=== PATIENT | female | born 2000 | race African-American/Black ===

== ENCOUNTER 2022-01-23 04:34 | Day surgery (SDC) | payer OTHER ==
[2022-01-22 13:24] VITALS: BMI 44.0
[2022-01-23 11:59] VITALS: BP 117/66; PULSE 59
[2022-01-23 13:33] VITALS: TEMP 97.4
== END 2022-01-23 11:58 | disposition home or self-care (01) ==
LOC: JASU-ENDO 04:34
PROVIDERS: ATTEND Internal Medicine Gastroenterology
PROC: 0DB68ZX Excision of Stomach, Via Natural or Artificial Opening Endoscopic, Diagnostic (ICD-10-PCS; principal; 2022-01-23 10:45)
DX: Z01.818 Encounter for other preprocedural examination (principal); E66.01 Morbid (severe) obesity due to excess calories; K29.50 Unspecified chronic gastritis without bleeding
CPT/HCPCS: 81025; 88305-TC; 88342-TC

== ENCOUNTER 2023-09-11 04:40 | Day surgery (SDC) | payer OTHER ==
[2023-09-07 12:26] VITALS: BMI 45.1
[2023-09-11] MEDS ORDERED: DEXAMETHASONE SOD PHOSPHATE 10 MG/1 ML VIAL ONE (13:39)
[2023-09-11] MEDS ORDERED: BUPIVACAINE HCL/PF 0.5% (5MG/ML) 10 ML VIAL ONE (13:40)
[2023-09-11] MEDS ORDERED: MIDAZOLAM HCL 2 MG/2 ML SINGLE DOSE VIAL ONE ×2 (13:41→13:56)
[2023-09-11] MEDS ORDERED: PROPOFOL 20 ML ONE (13:56)
[2023-09-11] MEDS ORDERED: ROCURONIUM BROMIDE 50 MG/5 ML SYRINGE ONE ×2 (13:57→14:57)
[2023-09-11] MEDS ORDERED: LIDOCAINE HCL/PF 2% SDV 5ML VIAL ONE (13:58)
[2023-09-11] MEDS ORDERED: ceFAZolin SODIUM 1 GM VIAL ONE (14:14)
[2023-09-11] MEDS: ceFAZolin SODIUM 1 GM VIAL IVPB ONE (14:14)
[2023-09-11] MEDS ORDERED: DEXAMETHASONE SOD PHOSPHATE 4 MG/1 ML VIAL ONE (14:22)
[2023-09-11] MEDS ORDERED: KETOROLAC TROMETHAMINE 30 MG/1 ML VIAL ONE (14:22)
[2023-09-11] MEDS ORDERED: ONDANSETRON 4 MG/2 ML VIAL ONE (14:22)
[2023-09-11] MEDS ORDERED: SUGAMMADEX SODIUM 200 MG/2 ML VIAL ONE (15:22)
[2023-09-11] MEDS ORDERED: ONDANSETRON 4 MG/2 ML VIAL IVPUSH PRN (16:21)
[2023-09-11] MEDS ORDERED: PROMETHAZINE HCL 25 MG/1 ML VIAL IVPB PRN (16:21)
[2023-09-11] MEDS ORDERED: LACTATED RINGERS SOLUTION 1,000 ML IV SCH (16:30)
[2023-09-11] MEDS ORDERED: HYDROmorphone HCl 2 MG/ML VIAL IVPUSH PRN (17:43)
[2023-09-11] MEDS: HYDROmorphone HCl 2 MG/ML VIAL IVPUSH ONE (17:45)
[2023-09-11] MEDS: ACETAMINOPHEN 1000 MG/100 ML BAG IVPB ONE ×2 (17:45→18:18)
[2023-09-11] MEDS ORDERED: oxyCODONE HCL 5 MG TABLET ONE (18:26)
[2023-09-11] MEDS: oxyCODONE HCL 5 MG TABLET PO PRN (18:27)
[2023-09-11] MEDS ORDERED: oxyCODONE HCL 5 MG TABLET PO PRN (18:31)
[2023-09-11 19:00] VITALS: RESP 20; TEMP 97.5
[2023-09-11 19:03] VITALS: BP 120/61; PULSE 75
== END 2023-09-11 19:10 | disposition home or self-care (01) ==
LOC: JASUSAT 04:40
PROVIDERS: ATTEND Obstetrics & Gynecology Gynecologic Oncology
PROC: 0UB14ZZ Excision of Left Ovary, Percutaneous Endoscopic Approach (ICD-10-PCS; principal; 2023-09-11 13:30)
DX: D27.1 Benign neoplasm of left ovary (principal)
CPT/HCPCS: 81025; 86850; 86900; 86901; 88108; 88305-TC; 88307-TC; 94760; J0131; J1100

== ENCOUNTER 2023-12-14 13:15 | Emergency (ER) | payer OTHER ==
[2023-12-14 13:31] VITALS: BP 128/61; PULSE 101; RESP 18; TEMP 98.4; BMI 43.5
[2023-12-14] MEDS ORDERED: KETOROLAC TROMETHAMINE 30 MG/1 ML VIAL ONE (14:58)
[2023-12-14] MEDS ORDERED: DEXAMETHASONE SOD PHOSPHATE 10 MG/1 ML VIAL ONE (14:58)
[2023-12-14] MEDS: KETOROLAC TROMETHAMINE 30 MG/1 ML VIAL IVPUSH ONE (14:59)
[2023-12-14] MEDS: DEXAMETHASONE LIQUID 0.5 MG/5 ML PO ONE (14:59)
[2023-12-14 15:02] LABS: EOS % 1.2 % (0-4.5); HEMATOCRIT 36.4 % (32.4-45.2); HEMOGLOBIN 11.7 GM/dL (10.7-15.3); LYMPH % 19.2 % (8-40); MCHC 32.1 g/dl (32.0-36.0); MEAN CELL VOLUME 77.9 fl (80-96); MEAN PLT VOLUME 7.5 fl (7.5-11.1); MONO % 7.2 % (3.8-10.2); NEUT % 71.4 % (42.8-82.8); PLATELET COUNT 472 10^3/uL (134-434); RBC 4.67 M/mm3 (3.60-5.2); RDW 15.9 % (11.6-15.6); WHITE BLOOD COUNT 11.1 K/mm3 (4.0-10.0)
[2023-12-14 15:19] LABS: POTASSIUM 4.1 mmol/L (3.5-5.1)
[2023-12-14 15:21] LABS: BLOOD UREA NITROGEN 12.9 mg/dL (7-18); CALCIUM 9.2 mg/dL (8.5-10.1)
[2023-12-14 15:25] LABS: CREATININE 0.9 mg/dL (0.55-1.3)
[2023-12-14 15:27] LABS: BILIRUBIN,TOTAL 0.9 mg/dL (0.2-1); TOT PROT 7.8 g/dl (6.4-8.2)
[2023-12-14 15:32] LABS: THROAT:GRP A STREP NOT DETECTED (NOTDETECTED)
[2023-12-14] MEDS ORDERED: AMOXICILLIN 250 MG CAPSULE ONE (16:44)
[2023-12-14] MEDS: AMOXICILLIN 500 MG CAPSULE (FP) PO ONE (16:49)
== END 2023-12-14 16:49 | disposition home or self-care (01) ==
LOC: JERFT 13:15
PROC: 3E0333Z Introduction of Anti-inflammatory into Peripheral Vein, Percutaneous Approach (ICD-10-PCS; principal; 2023-12-14)
DX: J03.90 Acute tonsillitis, unspecified (principal); R05.9 Cough, unspecified; R00.0 Tachycardia, unspecified; Z20.822 Contact with and (suspected) exposure to COVID-19
CPT/HCPCS: 0241U-QW; 36415; 70491-TC; 80053; 84703; 85025; 86308; 87651; 99285-25; Q9967

== ENCOUNTER 2025-02-03 20:25 | Emergency (ER) | payer OTHER ==
[2025-02-03 20:32] VITALS: RESP 18; BMI 45.1
[2025-02-03] MEDS ORDERED: LIDOCAINE 4% PATCH TP ONE (21:22)
[2025-02-03] MEDS ORDERED: ONDANSETRON 4 MG/2 ML VIAL ONE (21:23)
[2025-02-03] MEDS ORDERED: KETOROLAC TROMETHAMINE 15 MG/ML VIAL ONE (21:23)
[2025-02-03] MEDS: SODIUM CHLORIDE 500 ML IV STA (21:34)
[2025-02-03] MEDS: LIDOCAINE 4% PATCH TP ONE (21:34)
[2025-02-03] MEDS: ONDANSETRON 4 MG/2 ML VIAL IVPUSH ONE (21:34)
[2025-02-03] MEDS: KETOROLAC TROMETHAMINE 15 MG/ML VIAL IVPUSH ONE (21:34)
[2025-02-03 22:00] LABS: ABSOLUTE IMMATURE GRANULOCYTES 0.03 x10^3/uL (0.0-0.031); BASOPHILS # 0.09 x10^3/uL (0.01-0.08); EOSINOPHIL % 2.1 % (0.7-5.8); EOSINOPHILS # 0.24 x10^3/uL (0.04-0.36); MCHC 31.1 g/dl (32.2-35.5); MEAN CELL VOLUME 83.7 fl (79.4-94.8); MEAN PLT VOLUME 9.5 fl (9.4-12.3); MONOCYTE # 0.91 x10^3/uL (0.24-0.86); MONOCYTE % 7.9 % (4.7-12.5); RDW 13.5 % (12.1-16.5)
[2025-02-03] MEDS ORDERED: LIDOCAINE PATCH REMOVAL MC SCH (22:00)
[2025-02-03 22:41] LABS: URINE APPEARANCE CLEAR; URINE BILIRUBIN NEGATIVE (NEGATIVE); URINE COLOR YELLOW; URINE GLUCOSE (UA) NEGATIVE (NEGATIVE); URINE KETONE NEGATIVE (NEGATIVE); URINE LEUK ESTERASE NEGATIVE (NEGATIVE); URINE NITRITE NEGATIVE (NEGATIVE); URINE PROTEIN NEGATIVE (NEGATIVE); URINE UROBILINOGEN 1.0 mg/dL (0.2-1.0)
[2025-02-03 23:59] LABS: CO2 26.0 mmol/L (21-32); GLUCOSE,RANDOM 100.0 mg/dL (74-106)
[2025-02-04 00:02] LABS: CREATININE 1.0 mg/dL (0.55-1.3); SGOT/AST 39.0 U/L (15-37); SGPT/ALT 38.0 U/L (13-61)
[2025-02-04 00:04] LABS: TOT PROT 7.4 g/dl (6.4-8.2)
[2025-02-04 00:05] LABS: ALK PHOS 79.0 U/L (45-117)
[2025-02-04 00:29] VITALS: BP 112/54; PULSE 54; TEMP 98.4
[2025-02-04 00:58] LABS: HIV INTERPRETATION NEGATIVE (NEGATIVE)
[2025-02-04 00:59] LABS: HCV DIAGNOSTIC IN-HOUSE W/RFLX NON-REACTIVE (NONREACTIVE)
== END 2025-02-04 00:35 | disposition home or self-care (01) ==
LOC: JER 20:25
PROC: 3E0333Z Introduction of Anti-inflammatory into Peripheral Vein, Percutaneous Approach (ICD-10-PCS; principal; 2025-02-03)
PROC: 3E033GC Introduction of Other Therapeutic Substance into Peripheral Vein, Percutaneous Approach (ICD-10-PCS; 2025-02-03)
PROC: 3E0337Z Introduction of Electrolytic and Water Balance Substance into Peripheral Vein, Percutaneous Approach (ICD-10-PCS; 2025-02-03)
DX: M54.50 Low back pain, unspecified (principal); R11.0 Nausea; R10.9 Unspecified abdominal pain
CPT/HCPCS: 36415; 71046-TC-FY; 80053; 81003; 84703; 85025; 85379; 86803; 86850; 86900; 86901; 87086; 87389; 93005; 93010; 99285-25